=== PATIENT | female | born 1940 | race Caucasian/White ===

== ENCOUNTER 2019-04-04 13:09 | Emergency (ER) | payer OTHER ==
[2019-04-04 13:21] VITALS: BP 118/62; PULSE 57; TEMP 98.2; BMI 22.6
--- NOTE | 2019-04-04 13:23 | PDOC ---
Attending Attestation - Resident Resident Name: JuwanKwaku - ED Attending Attestation I have performed the following: I have examined & evaluated the patient, The case was reviewed & discussed with the resident, I agree w/resident's findings & plan, Exceptions are as noted - HPI HPI: 78 yo F history prior cerebral aneurysm presents with slurred speech that occurred twice in the past 4 days, most recent episode was last night. She has had a dry mouth as well. Denies weakness, numbness, CANO. Aneurysm was clipped in (patient has been told she should have MRI). - Physicial Exam PE: GENERAL: Awake, alert, and fully oriented, in no acute distress HEAD: No signs of trauma EYES: PERRLA, EOMI, sclera anicteric, conjunctiva clear ENT: Auricles normal inspection, hearing grossly normal, nares patent, oropharynx clear without exudates. Dry mucosa NECK: Normal ROM, supple, no lymphadenopathy, JVD, or masses LUNGS: Breath sounds equal, clear to auscultation bilaterally. No wheezes, and no crackles HEART: Regular rate and rhythm, normal S1 and S2, no murmurs, rubs or gallops ABDOMEN: Soft, nontender, normoactive bowel sounds. No guarding, no rebound. No masses EXTREMITIES: Normal range of motion, no edema. No clubbing or cyanosis. No cords, erythema, or tenderness NEUROLOGICAL: Cranial nerves II through XII grossly intact. Normal speech, normal gait. Motor and sensation intact SKIN: Warm, dry, normal turgor, no rashes or lesions noted. - Medical Decision Making 04/04/19 14:15 Will obtain labs, UA, CTH to r/o ICH. If all wnl, will consider CTA to evaluate , in light of history of aneurysm with repair. 04/04/19 14:22 Pt family is at bedside stating they called her neurologist, refusing CTA. They agree to CTH.
--- NOTE | 2019-04-04 13:45 | PDOC ---
History of Present Illness - General Chief Complaint: CVA/TIA Stated Complaint: slurred speech Time Seen by Provider: 04/04/19 13:10 History Source: Patient, Family Exam Limitations: Language Barrier (Nepali, hx w/ pt family ) - History of Present Illness Initial Comments: 04/04/19 13:46 Patient is mainly Nepali speaking, history gathered with patient and family. 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 Patient experienced 2 episodes, lasting 15 minutes each. She currently does not have symptoms. Denies behavior changes, numbness, tingling, lightheadedness, dizziness, weakness, changes in hearing, vision, or balance, N/V, chest pain, or SOB. No falls / trauma. PMH: as above Meds: see chart NKDA Does not smoke. Past History - Past Medical History Allergies/Adverse Reactions: Allergies Allergy/AdvReac Type Severity Reaction Status Date / Time No Known Allergies Allergy Verified 04/04/19 13:15 Home Medications: Ambulatory Orders Atorvastatin Ca [Lipitor] 10 mg PO HS 04/04/19 Brimonidine Tartrate/Timolol [Combigan Eye Drops] 5 ml OP BID 04/04/19 Latanoprost/Pf [Latanoprost 0.005% Eye Drop] 7.5 ml OP HS 04/04/19 Losartan/Hydrochlorothiazide [Losartan-Hctz 100-25 mg Tab] 1 each PO DAILY 04/04 Mesalamine [Apriso] 0.375 gm PO DAILY 04/04/19 Methylprednisolone [Medrol Dose Mike] 4 mg PO DAILY 04/04/19 Review of Systems - Review of Systems Able to Perform ROS?: Yes Is the patient limited Chinese proficient: Yes Constitutional: No: Symptoms Reported, See HPI, Chills, Diaphoresis, Fever, Loss of Appetite, Malaise, Night Sweats, Weakness, Weight Stable, Unintentional Wgt. Loss, Unexplained wgt Loss, Other HEENTM: No: Symptoms Reported, See HPI, Eye Pain, Blurred Vision, Tearing, Recent change in vision, Double Vision, Cataracts, Ear Pain, Ocular Prothesis, Ear Discharge, Nose Pain, Nose Congestion, Tinnitus, Nose Bleeding, Hearing Loss , Throat Pain, Throat Swelling, Mouth Pain, Dental Problems, Difficulty Swallowing, Mouth Swelling, Other Respiratory: No: Symptoms reported, See HPI, Cough, Orthopnea, Shortness of Breath, SOB with Exertion, SOB at Rest, Stridor, Wheezing, Productive cough, Hemoptysis, Other Cardiac (ROS): No: Symptoms Reported, See HPI, Chest Pain, Edema, Irregular Heart Rate, Lightheadedness, Palpitations, Syncope, Chest Tightness, Other ABD/GI: No: Symptoms Reported, See HPI, Abdominal Distended, Abd. Pain w/ defecation, Blood Streaked Bowels, Constipated, Diarrhea, Difficulty Swallowing , Nausea, Poor Appetite, Poor Fluid Intake, Rectal Bleeding, Vomiting, Indigestion, Abdominal cramping, Tarry Stools, Other : No: Symptoms Reported, See HPI, Burning, Dysuria, Discharge, Frequency, Flank Pain, Hematuria, Incontinence, Pain, Urgency, Testicular Mass, Testicular Swelling, Lesions, Testicular Pain, Other Musculoskeletal: Yes: Joint Pain (endorses chronic pain of RLE ). No: See HPI, Back Pain, Gout, Joint Swelling, Muscle Pain, Muscle Weakness, Neck Pain, Joint Stiffness, Other Integumentary: No: Symptoms Reported, See HPI, Bruising, Change in Color, Change in Hair/Nails, Dryness, Erythema, Flushing, Lesions, Lumps, Pallor, Pruritus, Rash, Sweating, Other Neurological: No: Symptoms reported, See HPI, Headache, Numbness, Paresthesia, Pre-Existing Deficit, Seizure, Tingling, Tremors, Weakness, Unsteady Gait, Ataxia, Dizziness, Other Endocrine: No: Symptoms Reported, See HPI, Excessive Sweating, Flushing, Intolerance to Cold, Intolerance to Heat, Increased Hunger, Increased Thirst, Increased Urine, Unexplained Weight Gain, Unexplained Weight Loss, Change in Weight, Other Hematologic/Lymphatic: No: Symptoms Reported, See HPI, Anemia, Blood Clots, Easy Bleeding, Easy Bruising, Bleeding Diathesis, Lymph Node Abnormalities, Swollen Glands, Other All Other Systems: Reviewed and Negative *Physical Exam - Physical Exam Comments: 04/04/19 13:54 GEN: Resting comfortably in bed, NAD. HEENT: NC/AT, EOMI, PERRLA, CN II-XII intact. Visual sierra intact. Moist mucous membranes. CV: S1/S2, RRR, no m/r/g LUNG: CTAB, no wheezes, crackles, rales, rhonchi. GI: soft, ndnt, +BS. EXTREMITIES: 2+ distal pulses. No LE edema. No obvious deformities of all extremities. NEURO: Sensation to touch intact in all extremities, face. 5/5 strength of b/l UE and LE. No ataxia on finger-nose or heel-moss testing. ED Treatment Course - LABORATORY CBC & Chemistry Diagram: 04/04/19 13:40 04/04/19 13:40 Medical Decision Making - Medical Decision Making 04/04/19 13:57 78 yo F h/o brain aneurysm (coiled/clipped in 90s) and HTN/HLD presenting for evaluation of 2 episodes of dry mouth and slurred speech. Exam found no focal neurologic deficits. DDx - TIA, CVA, rebleeding from aneurysm site, UTI, medication adverse effect - CBC, CMP, T&S, coags, cardiac markers, UA - EKG - CT Head - Fingerstick 96 04/04/19 15:00 Pt / family discussion: Neurologist was contacted and did not want a CTA, requested CT Head. Family declined further workup in the ED. CT head neg. Remainder of AMS work up neg Dispo: home with immediate neurology follow up in light of patient history. *DC/Admit/Observation/Transfer Diagnosis at time of Disposition: Slurred speech - Discharge Dispostion Disposition: HOME Condition at time of disposition: Stable Decision to Admit order: No - Referrals - Patient Instructions Printed Discharge Instructions: DI for Altered Mental Status Additional Instructions: You were seen in the Emergency Department. Our evaluation did not find any emergent medical conditions but we highly recommend close follow up. Please see your NEUROLOGIST within the next 1 day. Please return to an Emergency Department if you experience any of the following: - worsening of your symptoms - weakness, numbness, tingling, facial droop - seizures, fainting, loss of consciousness, change in behavior, and/or change in mentation - severe headache - chest pain - shortness of breath and/or difficulty breathing - any signs or symptoms that concern you - Post Discharge Activity
[2019-04-04 14:20] LABS: BASO % 0.2 % (0-2.0); EOS % 0.6 % (0-4.5); HEMATOCRIT 38.7 % (32.4-45.2); HEMOGLOBIN 12.9 GM/dl (10.7-15.3); LYMPH % 16.5 % (8-40); MCH 31.1 pg (25.7-33.7); MCHC 33.4 g/dl (32.0-36.0); MEAN CELL VOLUME 93.1 fl (80-96); MONO % 4.7 % (3.8-10.2); PLATELET COUNT 260 K/MM3 (134-434); RBC 4.15 M/mm3 (3.60-5.2); RDW 13.4 % (11.6-15.6); WHITE BLOOD COUNT 9.2 K/mm3 (4.0-10.8)
[2019-04-04 14:25] LABS: INR 1.15 (0.82-1.09); PROTHROMBIN TIME (PATIENT) 12.8 SEC (10.2-13.0)
[2019-04-04 14:27] LABS: EPITHELIAL CELLS FEW /hpf
[2019-04-04 14:29] LABS: ALBUMIN 4.1 g/dl (3.4-5.0); CALCIUM 9.4 mg/dl (8.5-10); CREATININE 0.7 mg/dl (0.55-1.3); POTASSIUM 3.5 mmol/L (3.5-5.1); TOT PROT 6.9 g/dl (6.4-8.2)
--- NOTE | 2019-04-05 10:51 | EKG ---
Test Reason : Blood Pressure : / mmHG Vent. Rate : 055 BPM Atrial Rate : 055 BPM P-R Int : 160 ms QRS Dur : 094 ms QT Int : 420 ms P-R-T Axes : 069 033 043 degrees QTc Int : 401 ms SINUS BRADYCARDIA POSSIBLE LEFT ATRIAL ENLARGEMENT BORDERLINE ECG NO PREVIOUS ECGS AVAILABLE Confirmed by NELDA HSAH MD ([id number]) on 04/05/2019 10:50:53 AM Referred By: DR VALDIVIA Confirmed By:NELDA SHAH MD
== END 2019-04-04 15:24 | disposition home or self-care (01) ==
LOC: FER 13:09
DX: R47.81 Slurred speech (principal); I10 Essential (primary) hypertension; E78.5 Hyperlipidemia, unspecified
CPT/HCPCS: 36415; 70450-TC; 80053; 81003; 81015; 82962; 84484; 85025; 85610; 86850; 86900; 86901; 87086; 93005; 99283-25